=== PATIENT | female | born 1975 | race Caucasian/White ===

== ENCOUNTER → 2017-12-16 | Outpatient (CLI) | payer OTHER ==
--- NOTE | 2017-12-16 16:13 | XR ---
EXAMINATION TYPE: XR lumbosacral spine min 4V DATE OF EXAM: 12/16/2017 COMPARISON: None HISTORY: Sciatica TECHNIQUE: Five-view lumbar spine FINDINGS: There is loss of disc height L5-S1. There 5 lumbar-type vertebral bodies. Pedicles are intact. Disc heights are otherwise preserved. Vert ebral body heights are preserved. IMPRESSION: 1. Degenerative disc changes L5-S1.
== END | disposition home or self-care (01) ==
LOC: RADXRYALE 11:07
PROVIDERS: ATTEND Internal Medicine
DX: M47.817 Spondylosis without myelopathy or radiculopathy, lumbosacral region (principal)
CPT/HCPCS: 72110

== ENCOUNTER → 2020-08-23 | Outpatient (CLI) | payer BC, OTHER ==
--- NOTE | 2020-08-23 12:34 | MR ---
EXAMINATION TYPE: MR lumbar spine wo con DATE OF EXAM: 08/23/2020 COMPARISON: None HISTORY: Lumbar pain, Rt sciatic pain TECHNIQUE: Multiplanar, multisequence images of the lumbar spine were acquired. Findings: The lumbar vertebral segments are normal in both height and alignment and there is no fracture or sub luxation. There is moderate degenerative disc disease at the L5-S1 level where there is loss of signal intensit y of the intervertebral disc along with discogenic endplate changes. There is a moderate to large broad-based disc contusion/herniation of the L5-S1 disc posteriorly grea ter than left of midline. Secondary to the disc protrusion/herniation, there is moderate to severe ne ural foraminal stenosis at the L5-S1 level on the left. There is mild facet arthropathy at the L4-5 and L5-S1 levels. There is no spinal stenosis. The paraspinal soft tissues are unremarkable. IMPRESSION: 1. Moderate degenerative disc disease at the L5-S1 level. 2. Large large L5-S1 broad-based disc protrusion/herniation posteriorly and to the left of midline co mpromising the left lateral recess and left L5-S1 neural foramina as described above. 3. Mild facet arthropathy the lower lumbar spine. 4. No lumbar spine fracture or malalignment. 5. No spinal stenosis.
== END | disposition home or self-care (01) ==
LOC: RADMRIMAIN 11:05
PROVIDERS: ATTEND Nurse Practitioner Family
DX: M51.27 Other intervertebral disc displacement, lumbosacral region (principal); M51.37 Other intervertebral disc degeneration, lumbosacral region; M47.816 Spondylosis without myelopathy or radiculopathy, lumbar region
CPT/HCPCS: 72148

== ENCOUNTER 2021-01-17 13:33 | Emergency (ER) | payer BC, OTHER ==
[2021-01-17 13:47] VITALS: TEMP 98.3
[2021-01-17 14:13] LABS: Appearance,Urine Cloudy (Clear); Bacteria,Urine Many /hpf; Bilirubin,Urine Negative (Negative); Blood,Urine Large (Negative); Color,Urine Yellow; Glucose,Urine (UA) Negative (Negative); Hyaline Casts,Urine 12 /lpf (0-2); Ketones,Urine 1+ (Negative); Leukocyte Esterase,Urine Moderate (Negative); Mucus,Urine Moderate /hpf; Nitrite,Urine Negative (Negative); Protein,Urine Trace (Negative); RBC,Urine >182 /hpf (0-5); Specific Gravity,Urine 1.013 (1.001-1.035); Squamous Epithelial Cell,Urine 42 /hpf (0-4); Urobilinogen,Urine <2.0 mg/dL (<2.0); WBC,Urine 30 /hpf (0-5)
[2021-01-17] MEDS ORDERED: KETOROLAC 15 MG/ML 1 ML VIAL IVP STA (15:18)
[2021-01-17] MEDS ORDERED: SODIUM CHLORIDE 0.9% 1,000 ML IV ONE (15:18)
[2021-01-17] MEDS ORDERED: ONDANSETRON 4 MG/2 ML VIAL IVP STA (15:18)
--- NOTE | 2021-01-17 15:25 | ED ---
General Adult HPI - General Chief complaint: Abdominal Pain Stated complaint: Kidney Stone Time Seen by Provider: 01/17/21 15:09 Source: patient, RN notes reviewed, old records reviewed Mode of arrival: ambulatory Limitations: no limitations - History of Present Illness Initial comments: 45-year-old female presenting for evaluation of right flank pain, mild lower abdominal pain. Patient was recently discharged with left obstructive any stone at outside hospital. She states that the pain on her right side started approximately 24 hours ago. She had one episode of vomiting and has persistent nausea as well. She does report hematuria. No fever. No chills. She is otherwise healthy. - Related Data Previous Rx's Medication Instructions Recorded Cephalexin [Keflex] 500 mg PO TID #30 cap 01/17/21 Ibuprofen [Motrin] 600 mg PO Q8HR PRN #24 tab 01/17/21 Tamsulosin [Flomax] 0.4 mg PO DAILY #7 cap 01/17/21 Allergies Allergy/AdvReac Type Severity Reaction Status Date / Time No Known Allergies Allergy Verified 01/17/21 13:44 Review of Systems ROS Statement: Those systems with pertinent positive or pertinent negative responses have been documented in the HPI. ROS Other: All systems not noted in ROS Statement are negative. Past Medical History Past Medical History: No Reported History History of Any Multi-Drug Resistant Organisms: None Reported Past Surgical History: No Surgical Hx Reported Past Psychological History: Depression Smoking Status: Current every day smoker Past Alcohol Use History: None Reported Past Drug Use History: Marijuana General Exam Limitations: no limitations General appearance: alert, in no apparent distress Head exam: Present: atraumatic, normocephalic Eye exam: Present: normal appearance, PERRL ENT exam: Present: mucous membranes dry Neck exam: Present: normal inspection. Absent: tenderness, meningismus Respiratory exam: Present: normal lung sounds bilaterally. Absent: respiratory distress, wheezes Cardiovascular Exam: Present: regular rate, normal rhythm GI/Abdominal exam: Present: soft. Absent: distended, tenderness, guarding Extremities exam: Present: normal inspection, normal capillary refill Back exam: Present: normal inspection, CVA tenderness (R) Neurological exam: Present: alert, oriented X3, CN II-XII intact. Absent: motor sensory deficit Psychiatric exam: Present: normal affect, normal mood Skin exam: Present: warm, dry, intact. Absent: cyanosis, diaphoretic Course Vital Signs 01/17/21 13:44 Temperature 98.3 F Pulse Rate 89 Respiratory 20 Rate Blood Pressure 108/73 O2 Sat by Pulse 98 Oximetry - Reevaluation(s) Reevaluation #1: 01/17/21 16:33 CT report from [facility] showing a right-sided nephrolithiasis and multiple bladder calculi no hydronephrosis or obstructing stone at that time. Reevaluation #2: 01/17/21 17:47 Patient reevaluated, resting comfortably, no pain. No vomiting. No fever. Medical Decision Making - Medical Decision Making 45-year-old female with right flank pain. CT performed, shows a 6 monitor stone at the UPJ with hydronephrosis. Patient has a mild leukocytosis at 12.1. She has mild hypercalcemia 11.6. She has a urinalysis showing greater than 182 red cells, 30 white cells and many bacteria. Urine culture is pending. She's given Toradol, IV fluids, IV antibiotics in the emergency department. I did discuss case with Dr. Stan suresh for urology. We both feel the patient is stable for discharge with empiric antibiotics and strict return parameters. Patient is feeling better and is agreeable with this plan. She is instructed to return with fever, worsening pain, vomiting. She will be prescribed antibiotics, pain medicine and Flomax. She is given a urine strainer in the emergency department. - Lab Data Result diagrams: 01/17/21 15:40 01/17/21 15:40 Lab Results 01/17/21 01/17/21 01/17/21 Range/Units 13:53 15:40 15:40 WBC 12.1 H (3.8-10.6) k/uL RBC 4.49 (3.80-5.40) m/uL Hgb 13.5 (11.4-16.0) gm/dL Hct 41.4 (34.0-46.0) % MCV 92.3 (80.0-100.0) fL MCH 30.1 (25.0-35.0) pg MCHC 32.6 (31.0-37.0) g/dL RDW 14.2 (11.5-15.5) % Plt Count 336 (150-450) k/uL MPV 8.1 Neutrophils % 72 % Lymphocytes % 20 % Monocytes % 5 % Eosinophils % 1 % Basophils % 0 % Neutrophils # 8.7 H (1.3-7.7) k/uL Lymphocytes # 2.5 (1.0-4.8) k/uL Monocytes # 0.5 (0-1.0) k/uL Eosinophils # 0.1 (0-0.7) k/uL Basophils # 0.1 (0-0.2) k/uL PT 10.5 (9.0-12.0) sec INR 1.0 (<1.2) APTT 22.2 (22.0-30.0) sec Sodium (137-145) mmol/L Potassium (3.5-5.1) mmol/L Chloride (98-107) mmol/L Carbon Dioxide (22-30) mmol/L Anion Gap mmol/L BUN (7-17) mg/dL Creatinine (0.52-1.04) mg/dL Est GFR (CKD-EPI)AfAm (>60 ml/min/1.73 sqM) Est GFR (CKD-EPI)NonAf (>60 ml/min/1.73 sqM) Glucose (74-99) mg/dL Plasma Lactic Acid Dejon (0.7-2.0) mmol/L Calcium (8.4-10.2) mg/dL Magnesium (1.6-2.3) mg/dL Total Bilirubin (0.2-1.3) mg/dL AST (14-36) U/L ALT (4-34) U/L Alkaline Phosphatase (38-126) U/L Total Protein (6.3-8.2) g/dL Albumin (3.5-5.0) g/dL Urine Color Yellow Urine Appearance Cloudy H (Clear) Urine pH 6.0 (5.0-8.0) Ur Specific [place] 1.013 (1.001-1.035) Urine Protein Trace H (Negative) Urine Glucose (UA) Negative (Negative) Urine Ketones 1+ H (Negative) Urine Blood Large H (Negative) Urine Nitrite Negative (Negative) Urine Bilirubin Negative (Negative) Urine Urobilinogen <2.0 (<2.0) mg/dL Ur Leukocyte Esterase Moderate H (Negative) Urine RBC >182 H (0-5) /hpf Urine WBC 30 H (0-5) /hpf Ur Squamous Epith Cells 42 H (0-4) /hpf Urine Bacteria Many H (None) /hpf Hyaline Casts 12 H (0-2) /lpf Urine Mucus Moderate H (None) /hpf 01/17/21 01/17/21 Range/Units 15:40 15:40 WBC (3.8-10.6) k/uL RBC (3.80-5.40) m/uL Hgb (11.4-16.0) gm/dL Hct (34.0-46.0) % MCV (80.0-100.0) fL MCH (25.0-35.0) pg MCHC (31.0-37.0) g/dL RDW (11.5-15.5) % Plt Count (150-450) k/uL MPV Neutrophils % % Lymphocytes % % Monocytes % % Eosinophils % % Basophils % % Neutrophils # (1.3-7.7) k/uL Lymphocytes # (1.0-4.8) k/uL Monocytes # (0-1.0) k/uL Eosinophils # (0-0.7) k/uL Basophils # (0-0.2) k/uL PT (9.0-12.0) sec INR (<1.2) APTT (22.0-30.0) sec Sodium 140 (137-145) mmol/L Potassium 3.6 (3.5-5.1) mmol/L Chloride 109 H (98-107) mmol/L Carbon Dioxide 20 L (22-30) mmol/L Anion Gap 11 mmol/L BUN 11 (7-17) mg/dL Creatinine 0.70 (0.52-1.04) mg/dL Est GFR (CKD-EPI)AfAm >90 (>60 ml/min/1.73 sqM) Est GFR (CKD-EPI)NonAf >90 (>60 ml/min/1.73 sqM) Glucose 99 (74-99) mg/dL Plasma Lactic Acid Dejon 1.5 (0.7-2.0) mmol/L Calcium 11.6 H (8.4-10.2) mg/dL Magnesium 2.0 (1.6-2.3) mg/dL Total Bilirubin 0.5 (0.2-1.3) mg/dL AST 18 (14-36) U/L ALT 13 (4-34) U/L Alkaline Phosphatase 69 (38-126) U/L Total Protein 7.8 (6.3-8.2) g/dL Albumin 4.7 (3.5-5.0) g/dL Urine Color Urine Appearance (Clear) Urine pH (5.0-8.0) Ur Specific [place] (1.001-1.035) Urine Protein (Negative) Urine Glucose (UA) (Negative) Urine Ketones (Negative) Urine Blood (Negative) Urine Nitrite (Negative) Urine Bilirubin (Negative) Urine Urobilinogen (<2.0) mg/dL Ur Leukocyte Esterase (Negative) Urine RBC (0-5) /hpf Urine WBC (0-5) /hpf Ur Squamous Epith Cells (0-4) /hpf Urine Bacteria (None) /hpf Hyaline Casts (0-2) /lpf Urine Mucus (None) /hpf Disposition Clinical Impression: Calculus of kidney Disposition: HOME SELF-CARE Condition: Good Instructions (If sedation given, give patient instructions): Kidney Stones (ED), Renal Colic (ED) Additional Instructions: Please return with worsening symptoms, fever, vomiting. Please take antibiotics as prescribed. Please follow up with the urologist. Prescriptions: Tamsulosin [Flomax] 0.4 mg PO DAILY #7 cap Cephalexin [Keflex] 500 mg PO TID #30 cap Ibuprofen [Motrin] 600 mg PO Q8HR PRN #24 tab PRN Reason: Pain Is patient prescribed a controlled substance at d/c from ED?: No Referrals: Ashley Junior NPC [Primary Care Provider] - 1-2 days Freddy Pierce MD [STAFF PHYSICIAN] - 1-2 days Time of Disposition: 17:50
[2021-01-17 15:57] LABS: Basophils # (A) 0.1 k/uL (0-0.2); Basophils % (A) 0 %; Eosinophils # (A) 0.1 k/uL (0-0.7); Eosinophils % (A) 1 %; HCT 41.4 % (34.0-46.0); HGB 13.5 gm/dL (11.4-16.0); Lymphocytes # (A) 2.5 k/uL (1.0-4.8); Lymphocytes % (A) 20 %; MCH 30.1 pg (25.0-35.0); MCHC 32.6 g/dL (31.0-37.0); MCV 92.3 fL (80.0-100.0); Mean Platelet Volume 8.1; Monocytes # (A) 0.5 k/uL (0-1.0); Monocytes % (A) 5 %; Neutrophils # (A) 8.7 k/uL (1.3-7.7); Neutrophils % (A) 72 %; Platelet Count 336 k/uL (150-450); RBC 4.49 m/uL (3.80-5.40); RDW 14.2 % (11.5-15.5); WBC 12.1 k/uL (3.8-10.6)
[2021-01-17 16:14] LABS: Partial Thromboplastin Time 22.2 sec (22.0-30.0); Prothrombin Time 10.5 sec (9.0-12.0)
[2021-01-17 16:24] LABS: ALT 13 U/L (4-34); AST 18 U/L (14-36); African American GFR (CKD) >90 (>60 ml/min/1.73 sqM); Albumin 4.7 g/dL (3.5-5.0); Alkaline Phosphatase 69 U/L (38-126); Anion Gap 11 mmol/L; Blood Urea Nitrogen 11 mg/dL (7-17); Calcium 11.6 mg/dL (8.4-10.2); Carbon Dioxide 20 mmol/L (22-30); Chloride 109 mmol/L (98-107); Glucose 99 mg/dL (74-99); Non-African American GFR(CKD) >90 (>60 ml/min/1.73 sqM); Potassium 3.6 mmol/L (3.5-5.1); Sodium 140 mmol/L (137-145); Total Bilirubin 0.5 mg/dL (0.2-1.3); Total Protein 7.8 g/dL (6.3-8.2)
[2021-01-17] MEDS ORDERED: cefTRIAXone IN SWFI 1,000 MG/10 ML SYRINGE IVP STA (16:26)
--- NOTE | 2021-01-17 17:15 | CT ---
EXAMINATION TYPE: CT abdomen pelvis wo con DATE OF EXAM: 01/17/2021 COMPARISON: None HISTORY: right flank pain CT DLP: 463.7 mGycm Automated exposure control for dose reduction was used. Images obtained from the diaphragm to the floor the pelvis without contrast. Lung bases are clear. There is no pleural effusion. Heart size is normal. There is no pericardial eff usion. Liver spleen stomach pancreas gallbladder appear intact. Bile ducts are not dilated. There are small calcified splenic granulomata. There is no adrenal mass. Kidneys have normal size. There is right side mild hydronephrosis. There is 6 mm obstructing calculus at the right ureteropelvic junction. There are a few right-sided renal garett culi measuring up to 3 mm. There is no retroperitoneal adenopathy. I see no evidence of distal ureter al calculus. There is no inguinal hernia. Bladder distends smoothly. Uterus is anteverted. There is n o pelvic mass. There is no free fluid in the pelvis. Appendix is posterior and appears normal. There is no mesenteric edema. There is no ascites or free a ir. There is no bowel obstruction. Lumbar vertebra have normal alignment. Posterior elements are intact. There is vacuum disc at L5-S1. Hip joints are intact. IMPRESSION: Obstructing calculus at the right ureteropelvic junction. There are several small right renal calculi. Right side hydronephrosis. Normal appendix.
[2021-01-17 18:48] VITALS: BP 135/74; PULSE 87; RESP 18
== END 2021-01-17 18:48 | disposition home or self-care (01) ==
LOC: EC 13:33
DX: N13.2 Hydronephrosis with renal and ureteral calculous obstruction (principal); D72.829 Elevated white blood cell count, unspecified; E83.52 Hypercalcemia; F17.200 Nicotine dependence, unspecified, uncomplicated
CPT/HCPCS: 36415; 80053; 83605; 83735; 85025; 85610; 85730; 81001; 87086; 74176; 99284; 96374; 96375; 96361; J2405; J0696; J1885

== ENCOUNTER → 2021-01-23 | Outpatient (CLI) | payer BC ==
--- NOTE | 2021-01-23 09:52 | XR ---
EXAMINATION TYPE: XR KUB DATE OF EXAM: 01/23/2021 COMPARISON: CT abdomen and pelvis 01/17/2021 HISTORY: Right ureteral pelvic junction stone TECHNIQUE: Single AP abdomen FINDINGS: Psoas margins are normal. Organomegaly is not evident. Osseous structures are normal. Wanda l colonic bowel gas is present. The patient's right ureteral pelvic junction stone is not identified. No ureteral calcifications are identified. IMPRESSION: 1. Normal abdomen
== END | disposition home or self-care (01) ==
LOC: LABWHC1 09:22
PROVIDERS: ATTEND Urology
DX: N20.1 Calculus of ureter (principal)
CPT/HCPCS: 74018

== ENCOUNTER → 2021-02-04 | Outpatient (CLI) | payer BC ==
[2021-02-04 10:12] LABS: Basophils % (A) 1 %; Eosinophils # (A) 0.2 k/uL (0-0.7); Eosinophils % (A) 3 %; HCT 39.3 % (34.0-46.0); HGB 12.5 gm/dL (11.4-16.0); Lymphocytes # (A) 1.9 k/uL (1.0-4.8); Lymphocytes % (A) 31 %; MCH 29.4 pg (25.0-35.0); Mean Platelet Volume 8.2; Monocytes # (A) 0.3 k/uL (0-1.0); Monocytes % (A) 6 %; Neutrophils # (A) 3.5 k/uL (1.3-7.7); Neutrophils % (A) 57 %; Platelet Count 314 k/uL (150-450); RBC 4.27 m/uL (3.80-5.40); RDW 13.9 % (11.5-15.5); WBC 6.1 k/uL (3.8-10.6)
[2021-02-04 10:13] LABS: Appearance,Urine Cloudy (Clear); Bacteria,Urine Occasional /hpf; Bilirubin,Urine Negative (Negative); Blood,Urine Moderate (Negative); Color,Urine Light Yellow; Glucose,Urine (UA) Negative (Negative); Ketones,Urine Negative (Negative); Leukocyte Esterase,Urine Moderate (Negative); Mucus,Urine Rare /hpf; Nitrite,Urine Negative (Negative); PH, Urine 5.5 (5.0-8.0); Protein,Urine Negative (Negative); RBC,Urine 18 /hpf (0-5); Specific Gravity,Urine 1.017 (1.001-1.035); Squamous Epithelial Cell,Urine 5 /hpf (0-4); Urobilinogen,Urine <2.0 mg/dL (<2.0); WBC,Urine 11 /hpf (0-5)
[2021-02-04 10:17] LABS: African American GFR (CKD) >90 (>60 ml/min/1.73 sqM); Anion Gap 6 mmol/L; Blood Urea Nitrogen 15 mg/dL (7-17); Calcium 11.4 mg/dL (8.4-10.2); Carbon Dioxide 25 mmol/L (22-30); Chloride 108 mmol/L (98-107); Glucose 106 mg/dL (74-99); Non-African American GFR(CKD) >90 (>60 ml/min/1.73 sqM); Potassium 4.4 mmol/L (3.5-5.1); Sodium 139 mmol/L (137-145)
== END | disposition home or self-care (01) ==
LOC: LABPAT 09:16
PROVIDERS: ATTEND Urology
DX: N20.1 Calculus of ureter (principal)
CPT/HCPCS: 80048; 81001; 85025; 87086

== ENCOUNTER 2021-02-11 08:01 | Day surgery (SDC) | payer BC ==
[2021-02-06 12:21] VITALS: BMI 28.9
--- NOTE | 2021-02-10 17:08 | P.HPIHPCON ---
History of Present Illness H&P Date: 02/10/21 This is a 45-year-old female with history of a 6 mm right-sided UPJ stone. She symptomatically from her stone. She has failed medical expulsive therapy, the stone is radiolucent. Discussed with her the option of a right-sided ureteroscopy with holmium laser. Discussed with her her the risk which includes but not limited to bleeding, infection, injury to the ureter. She understood all the risk and agreed to proceed. Consent for Procedure: I have explained the operation/procedure to the patient, including the risks, benefits, side effects, alternative therapies (including not receiving the proposed treatment or service), the likelihood of the patient achieving his/her goals, and potential recuperation problems for the procedure/sedation/analgesia, as well as any blood products, if indicated. I also explained to the patient the risks, benefits and side effects of the alternatives, as well as the risks related to not receiving the proposed procedure, care, treatment, or services. - Constitutional Constitutional: Denies chills, Denies fever Past Medical History Past Medical History: No Reported History Additional Past Medical History / Comment(s): KIDNEY STONE History of Any Multi-Drug Resistant Organisms: None Reported Past Surgical History: No Surgical Hx Reported Additional Past Surgical History / Comment(s): BOILED I & D PERIANAL AREA Past Anesthesia/Blood Transfusion Reactions: No Reported Reaction Smoking Status: Current every day smoker - Past Family History Mother Family Medical History: No Reported History Medications and Allergies Home Medications Medication Instructions Recorded Confirmed Type Acetaminophen [Tylenol Extra 1,000 mg PO Q6HR PRN 02/06/21 02/06/21 History Strength] Escitalopram [Lexapro] 10 mg PO HS 02/06/21 02/06/21 History Gabapentin 300 mg PO TID 02/06/21 02/06/21 History Allergies Allergy/AdvReac Type Severity Reaction Status Date / Time No Known Allergies Allergy Verified 02/06/21 12:04 Surgical - Exam - General well developed, well nourished, moderate pain - Eyes PERRL, normal ocular movement - ENT normal nares, normal mucosa - Respiratory normal expansion, normal respiratory effort - Psychiatric oriented to time, oriented to person, oriented to place Assessment and Plan Assessment: OR for right-sided ureteroscopy, with holmium laser lithotripsy, stone basketing and stent insertion
[~2021-02-11 08:01] MED LIST: DEXAMETHASONE SOD PHOSPHATE 4 MG/ML 1 ML VIAL IV ONE; HYDROmorphone 0.5 MG/0.5 ML SYRINGE IVP PRN; LACTATED RINGERS 1,000 ML IV SCH; LIDOCAINE 1% (10MG/ML) FOR IV START INTRADERMA PRN; MIDAZOLAM 2 MG/2 ML VIAL IV PRN; ONDANSETRON 4 MG/2 ML VIAL IVP ONE
--- NOTE | 2021-02-11 08:22 | XR ---
EXAMINATION TYPE: XR KUB DATE OF EXAM: 02/11/2021 Comparison: 01/23/2021 Clinical History: 45-year-old female KIDNEY STONES Findings: Mild stool burden. No dilated small bowel loops. Supine imaging limited for assessment of free air. R ight renal shadow largely obscured by bowel content. Otherwise, no suspicious calcifications clearly identified radiographically. Impression: The right renal shadow is largely obscured by bowel content. Nonobstructive bowel gas pattern. Mild s tool burden.
[2021-02-11] MEDS ORDERED: ONDANSETRON 4 MG/2 ML VIAL IVP ONE (09:12)
[2021-02-11] MEDS ORDERED: DEXAMETHASONE SOD PHOSPHATE 4 MG/ML 1 ML VIAL IVP ONE (09:12)
[2021-02-11] MEDS ORDERED: SCOPOLAMINE 1.5MG/72HR PATCH TRANSDERM ONE (09:12)
[2021-02-11] MEDS ORDERED: fentaNYL (PF) 50 MCG/ML 2 ML AMP ONE (10:18)
[2021-02-11] MEDS ORDERED: PROPOFOL 10 MG/ML 20 ML VIAL IV ONE (10:18)
[2021-02-11] MEDS ORDERED: LIDOCAINE 1% INJ 10MG/ML (20 ML MDV) ONE (10:18)
[2021-02-11] MEDS ORDERED: MIDAZOLAM 2 MG/2 ML VIAL ONE (10:18)
[2021-02-11] MEDS ORDERED: SUCCINYLCHOLINE CHLORIDE 100 MG/5 ML SYR IV ONE (10:18)
[2021-02-11] MEDS ORDERED: IOPAMIDOL-370 50ML BTL MISCELLANE ONE (10:41)
[2021-02-11] MEDS ORDERED: LACTATED RINGERS 1,000 ML IV ONE (10:42)
[2021-02-11 11:21] VITALS: TEMP 97.1
[2021-02-11 11:35] VITALS: RESP 16
--- NOTE | 2021-02-11 11:46 | FL ---
Fluoroscopy HISTORY: Right ureteral calculus 23 seconds fluoroscopy time supplied to the referring clinician. 3 intraoperative C-arm images docum ent the procedure. See dictated report from urology.
[2021-02-11 12:29] VITALS: BP 111/68; PULSE 55
--- NOTE | 2021-02-11 13:47 | P.OP ---
Date of Procedure: 02/11/21 Preoperative Diagnosis: right ureteral calculi Postoperative Diagnosis: same Procedure(s) Performed: cystoscopy, right ureteroscopy, holmium laser lithotripsy, stone basketing and stent insertion, and a retrograde pyelogram Implants: 6-English by 24 cm stent in right ureter Anesthesia: ONUR Surgeon: Bandar Lew Estimated Blood Loss (ml): 5 Pathology: other (right ureteral stone) Condition: stable Disposition: PACU Indications for Procedure: This is a 45-year-old female with history of a 6 mm right-sided UPJ stone. She symptomatically from her stone. She has failed medical expulsive therapy, the stone is radiolucent. Discussed with her the option of a right-sided ureteroscopy with holmium laser. Discussed with her her the risk which includes but not limited to bleeding, infection, injury to the ureter. She understood all the risk and agreed to proceed. Operative Findings: right proximal ureteral stone Description of Procedure: she was brought to the operating room, general anesthesia was induced. She was prepped and draped in sterile fashion and placed in dorsal lithotomy position. Cystoscopy fitted with a 21-English sheath was inserted per urethra, cystoscopy was performed which showed no abnormality within the bladder. Attention was then carried to the right ureteral orifice which was intubated with an open- ended catheter, retrograde pyelogram was performed which showed a filling defect in the proximal ureter with hydronephrosis. At this time the catheter was removed and a sensor wire was advanced past the stone into the renal pelvis. Next under fluoroscopy 1113 English access sheath was passed over the wire and into the proximal ureter. Next the flexible ureteroscope was inserted through the access sheath, the stone was visualized in the proximal ureter. Using the holmium laser the stone was fragmented into small fragments, sizable fragments were removed using the stone basket. At this time the ureteroscope was advanced into the kidney, renoscopy was performed showed an additional small stone within the mid calyx, but no additional stones, this was basketted and removed . Repeat renoscopy showed no injury to the kidney or any ureteral fragments. Pullback ureteroscopy was performed which showed no injury to the ureter or any sizable fragments. But of note there was edema at the site of stone impaction. As the ureteroscope was withdrawn a sensor wire was advanced through. Next a ureteral stent was passed over the wire, the proximal curl was visualized on fluoroscopy and the distal curl was visualized using the cystoscope. The bladder was emptied at the end of the case. Patient tolerated procedure well was taken to recovery in stable condition
== END 2021-02-11 13:03 | disposition home or self-care (01) ==
LOC: OR 08:01
PROVIDERS: ATTEND Urology
DX: N20.1 Calculus of ureter (principal); F17.210 Nicotine dependence, cigarettes, uncomplicated; Z79.899 Other long term (current) drug therapy
CPT/HCPCS: 81025; 82365; 74018; 52356; C2625; C1758; C1769; J2250; J1100; J0690; J2405; J2001; J3010; J0330; J2704; J1170; Q9967

== ENCOUNTER → 2021-03-12 | Outpatient (CLI) | payer BC ==
--- NOTE | 2021-03-12 19:09 | US ---
EXAMINATION TYPE: US kidneys/renal and bladder DATE OF EXAM: 03/12/2021 COMPARISON: NONE CLINICAL HISTORY: 45-year-old female N20.1 Calculus of ureter right. Hx of kidney stones TECHNIQUE: Multiple sonographic images of the kidneys and bladder are obtained. FINDINGS: EXAM MEASUREMENTS: Right Kidney: 11.0 x 4.6 x 4.8 cm Left Kidney: 10.6 x 5.7 x 3.8 cm Right Kidney: No hydronephrosis. There is an echogenic focus measuring 7 mm at the lower pole. Left Kidney: No evidence of hydronephrosis Bladder: wnl Bilateral Jets seen: yes IMPRESSION: 1. No hydronephrosis. 2. A 7 mm echogenic area in the lower pole of the right kidney could represent a developing calculus or prominent vascular reflector.
== END | disposition home or self-care (01) ==
LOC: RADUSWWP 14:51
PROVIDERS: ATTEND Urology
DX: N20.1 Calculus of ureter (principal)
CPT/HCPCS: 76770

== ENCOUNTER → 2022-07-14 | Outpatient (CLI) | payer BC ==
--- NOTE | 2022-07-14 10:13 | XR ---
EXAMINATION TYPE: XR abdomen 2V DATE OF EXAM: 07/14/2022 9:28 AM INDICATION: Patient age:Female; 46 years old; Reason for study: [id number] LOWER ABD PAIN; COMPARISON: CT 01/17/2021, ultrasound 03/12/2021 TECHNIQUE: Two views of the abdomen were obtained. FINDINGS: There are at least 3 calcifications one of which projects over the inferior kidney measurin g 6 mm and two more medially measuring 13 x 8 and 7 x 5 mm felt to be within the renal pelvis/proxima l ureter. The bowel gas pattern is nonspecific without dilated loops of small or large bowel. There i s no evidence for organomegaly or pneumoperitoneum. The osseous structures are intact. Fecal materia l and gas are demonstrated throughout the colon and rectum. IMPRESSION: Right calcifications which could be within the urinary collecting system. Some of these were seen on prior including the small calcification projected inferior kidney and the smaller renal pelvis consul tation.
== END | disposition home or self-care (01) ==
LOC: RADXRYALE 09:16
PROVIDERS: ATTEND Physician Assistant Medical
DX: N28.89 Other specified disorders of kidney and ureter (principal)
CPT/HCPCS: 74019

== ENCOUNTER → 2022-07-20 | Outpatient (CLI) | payer BC ==
--- NOTE | 2022-07-20 10:49 | CT ---
EXAMINATION TYPE: CT abdomen pelvis wo con DATE OF EXAM: 07/20/2022 COMPARISON: 01/17/2021 HISTORY: 46-year-old female R10.30, Abdominal pain, renal stones, bilateral flank pain CT DLP: 515.4 mGycm. Automated exposure control for dose reduction was used. TECHNIQUE: Contiguous axial scanning of the abdomen and pelvis without IV contrast. Coronal and sagit miky reconstructions performed. FINDINGS: Heart normal size without pericardial effusion. Mild emphysematous change in the visualized lower samreen gs without pleural effusion. Noncontrast appearance of the liver, gallbladder, adrenal glands, spleen, and pancreas show no gross abnormality. A few punctate calcified granulomas within the spleen. 6 mm nonobstructive left renal calculus. 6 mm nonobstructive right renal calculus. However, there is moderate right-sided hydronephrosis secondary to a 9 mm stone in the upper most rig ht ureter. A second 6 cm stone is present just below. No dilated small bowel, free fluid, or free air. No mesenteric or retroperitoneal lymphadenopathy. Normal appendix. There is mild stool burden. No pericolic inflammatory change. The appearance of mild circumferential rectal wall thickening probably due to adherent stool material Bladder is urine distended. Uterus anteverted. Both ovaries are visualized. No abnormal fluid collect ion in the pelvis or pelvic lymphadenopathy. Bones: Moderate to advanced degenerative disc disease L5-S1. Facet arthropathy lower lumbar spine. IMPRESSION: 1. Right-sided obstructive uropathy secondary to a 9 mm and 6 mm stone in the upper right ureter. Mo derate hydronephrosis is present. 2. Additional nonobstructive 6 mm stone within either kidney. 3. Appearance of mild circumferential rectal wall thickening probably due to adherent stool material . Correlate for any symptoms of a mild distal colitis.
== END | disposition home or self-care (01) ==
LOC: RADCTMAIN 09:47
PROVIDERS: ATTEND Family Medicine
DX: N13.2 Hydronephrosis with renal and ureteral calculous obstruction (principal); K62.89 Other specified diseases of anus and rectum
CPT/HCPCS: 74176

== ENCOUNTER → 2023-07-21 | Outpatient (CLI) | payer BC ==
--- NOTE | 2023-07-21 10:00 | XR ---
EXAMINATION TYPE: XR chest 2V DATE OF EXAM: 07/21/2023 9:40 AM CLINICAL INDICATION:Female, 47 years old with history of [id number],[id number],[id number]; [facility] COMPARISON: None TECHNIQUE: XR chest 2V Frontal and lateral views of the chest. FINDINGS: Lungs/Pleura: Nodule projecting anteriorly over the heart on lateral view measuring 9 mm. There is no evidence of pleural effusion, focal consolidation, or pneumothorax. Pulmonary vascularity: Unremarkable. Heart/mediastinum: Cardiomediastinal silhouette is unremarkable. Musculoskeletal: No acute osseous pathology. IMPRESSION: 1. No acute cardiopulmonary disease/process. 2. 9 mm opacity projecting over the heart on lateral view etiology uncertain not definitively seen o n frontal view. Consider cross-sectional imaging for further evaluation.
== END | disposition home or self-care (01) ==
LOC: RADXRYALE 09:30
PROVIDERS: ATTEND Physician Assistant
DX: R91.8 Other nonspecific abnormal finding of lung field (principal); J01.00 Acute maxillary sinusitis, unspecified; J02.9 Acute pharyngitis, unspecified; J18.0 Bronchopneumonia, unspecified organism; J45.901 Unspecified asthma with (acute) exacerbation; R05.1 Acute cough
CPT/HCPCS: 71046

== ENCOUNTER → 2023-08-04 | Outpatient (CLI) | payer BC ==
--- NOTE | 2023-08-04 11:34 | XR ---
EXAMINATION TYPE: XR chest 2V DATE OF EXAM: 08/04/2023 COMPARISON: 08/08/2023 HISTORY: 47-year-old female follow-up cough [id number],[id number] TECHNIQUE: Frontal and lateral views FINDINGS: Vertebral size. Aorta and pulmonary vasculature within normal limits. Calcified granuloma anterior mi d lung on the lateral view. No consolidation or pleural effusion. IMPRESSION: Evidence of prior granulomatous disease. No acute cardiopulmonary process.
== END | disposition home or self-care (01) ==
LOC: RADXRYALE 08:34
PROVIDERS: ATTEND Physician Assistant
DX: J18.0 Bronchopneumonia, unspecified organism (principal); J45.901 Unspecified asthma with (acute) exacerbation; J01.00 Acute maxillary sinusitis, unspecified; J02.9 Acute pharyngitis, unspecified
CPT/HCPCS: 71046

== ENCOUNTER → 2023-09-20 | Outpatient (CLI) | payer BC ==
--- NOTE | 2023-09-20 17:39 | XR ---
EXAMINATION TYPE: XR abdomen 1V DATE OF EXAM: 09/20/2023 Comparison: 07/14/2022 Clinical History: 47-year-old female N200,[id number] CALC OF KIDNEY, LLQ PAIN Findings: A couple left-sided renal calculi measuring up to 1.1 cm. A 1.1 cm calcification in the left paramedi an mid abdomen as well. A 9 mm calcification right paramedian mid abdomen. A 6 mm calcification right mid to lower abdomen. Nonobstructive bowel gas pattern. Minimal stool. Impression: 1. Left-sided nephrolithiasis measuring up to 1.1 cm. An additional 1.1 cm calcification may be locat ed within the left renal collecting system. 2. Right-sided calcifications measuring 9 mm and 6 mm possibly within the renal pelvis and upper righ t ureter. Clinically correlate. The 6 mm calcification is located slightly more inferior than on prio r exam.
== END | disposition home or self-care (01) ==
LOC: RADXRYALE 16:19
PROVIDERS: ATTEND Physician Assistant Medical
DX: N20.0 Calculus of kidney (principal); N28.89 Other specified disorders of kidney and ureter
CPT/HCPCS: 74018

== ENCOUNTER 2023-10-11 10:59 | Day surgery (SDC) | payer BC ==
[2023-10-06 17:06] VITALS: BMI 4161.8
--- NOTE | 2023-10-11 09:28 | P.HPIHPCON ---
History of Present Illness H&P Date: 10/11/23 Chief Complaint: Right ureteral stone, left renal stone This is a 47-year-old female with history of 2 right-sided proximal ureteral stone measuring 9 and 6 mm, and a 6 mm left-sided renal stone. Stones in the right ureter have been present since July. She is having symptomatic bilateral flank pain. Discussed with her given that the stone has been present for greater than 2 months I do recommend proceeding with surgical intervention. Of note she also would like to address her left-sided renal stone. Discussed with her the option of bilateral ureteroscopy with holmium laser, aware of the risk which includes but not limited to bleeding, infection, injury to the ureter. Aware of potential that I may not be able to remove the stones on the right side given that they been present for greater than 2 months. Discussed also for her left-sided renal stone potential persistent left flank pain even with stone removal. She understood all the risk and agreed to proceed Consent for Procedure: I have explained the operation/procedure to the patient, including the risks, benefits, side effects, alternative therapies (including not receiving the proposed treatment or service), the likelihood of the patient achieving his/her goals, and potential recuperation problems for the procedure/sedation/analgesia, as well as any blood products, if indicated. I also explained to the patient the risks, benefits and side effects of the alternatives, as well as the risks related to not receiving the proposed procedure, care, treatment, or services. Past Medical History Past Medical History: Asthma Additional Past Medical History / Comment(s): SEASONAL ALLERGIES, KIDNEY STONES History of Any Multi-Drug Resistant Organisms: None Reported Past Surgical History: No Surgical Hx Reported Past Anesthesia/Blood Transfusion Reactions: No Reported Reaction Smoking Status: Current every day smoker - Past Family History Father Family Medical History: Cancer Medications and Allergies Home Medications Medication Instructions Recorded Confirmed Type Escitalopram [Lexapro] 10 mg PO HS 02/06/21 10/06/23 History Albuterol Nebulized [Ventolin 1.25 mg INHALATION Q6H 10/06/23 10/06/23 History Nebulized (Accuneb)] Tiotropium 18 Mcg/Puff [Spiriva] 1 puff INHALATION DAILY 10/06/23 10/06/23 History Allergies Allergy/AdvReac Type Severity Reaction Status Date / Time No Known Allergies Allergy Verified 10/06/23 16:34 Surgical - Exam - General no distress, moderate pain - Eyes normal ocular movement, no pale - ENT normal nares, normal mucosa - Respiratory normal expansion, normal respiratory effort - Abdomen Abdomen: soft, non tender - Psychiatric oriented to time, oriented to person, oriented to place Assessment and Plan Assessment: OR for bilateral ureteroscopy, holmium laser lithotripsy, stone basketing and stent insertion
[~2023-10-11 10:59] MED LIST changes: -DEXAMETHASONE SOD PHOSPHATE 4 MG/ML 1 ML VIAL IV ONE; -LACTATED RINGERS 1,000 ML IV SCH; -MIDAZOLAM 2 MG/2 ML VIAL IV PRN; -ONDANSETRON 4 MG/2 ML VIAL IVP ONE; +droPERidol 5 MG/2 ML VIAL IVP ONE
--- NOTE | 2023-10-11 11:18 | XR ---
EXAMINATION TYPE: XR KUB DATE OF EXAM: 10/11/2023 HISTORY: Pain Comparison: None.Single KUB is submitted for interpretation. Findings: Right renal calculi: None Visualized. Right ureteral calculi: 8 mm right renal pelvis/UPJ calculus noted. Left renal calculi: Multiple calculi lower pole left kidney measuring up to 5 mm. Left ureteral calculi: Left UPJ calculus measuring 1.2 cm x 0.6 cm Pelvic calcifications: None Visualized. Bowel gas pattern is unremarkable. No free air. No mass effects. IMPRESSION: 1. As above
[2023-10-11] MEDS: LACTATED RINGERS 1,000 ML IV SCH (12:09)
[2023-10-11] MEDS: ONDANSETRON 4 MG/2 ML VIAL IVP ONE (12:10)
[2023-10-11] MEDS: DEXAMETHASONE SOD PHOSPHATE 4 MG/ML 1 ML VIAL IV ONE (12:10)
[2023-10-11] MEDS: IV FLUID CONTINUATION 1,000 ML IV ONE (12:10)
[2023-10-11] MEDS ORDERED: SUCCINYLCHOLINE CHLORIDE 200 MG/10 ML VIAL IV ONE (12:39)
[2023-10-11] MEDS ORDERED: DEXAMETHASONE SOD PHOSPHATE 10 MG/ML 1 ML VIAL ONE (12:39)
[2023-10-11] MEDS ORDERED: MIDAZOLAM 2 MG/2 ML VIAL ONE (12:39)
[2023-10-11] MEDS ORDERED: ROCURONIUM 10 MG/ML (5 ML VIAL) IV ONE (12:39)
[2023-10-11] MEDS ORDERED: GLYCOPYRROLATE 0.2 MG/ML 2 ML VIAL ONE (12:39)
[2023-10-11] MEDS ORDERED: fentaNYL (PF) 50 MCG/ML 2 ML AMP ONE (12:39)
[2023-10-11] MEDS ORDERED: ALBUTEROL HFA INHALER INHALATION ONE (12:39)
[2023-10-11] MEDS ORDERED: ePHEDrine 50 MG/ML 1 ML VIAL ONE (12:39)
[2023-10-11] MEDS ORDERED: PROPOFOL 10 MG/ML 20 ML VIAL IV ONE (12:39)
[2023-10-11] MEDS ORDERED: LIDOCAINE 1% INJ 10MG/ML (20 ML MDV) ONE (12:39)
[2023-10-11] MEDS ORDERED: PHENYLEPHRINE 10 MG/ML VIAL ONE (12:39)
[2023-10-11] MEDS ORDERED: NEOSTIGMINE 1 MG/ML 10 ML VIAL ONE (12:39)
[2023-10-11] MEDS: IOPAMIDOL-370 100ML BTL MISCELLANE ONE ×2 (14:00)
[2023-10-11] MEDS: LACTATED RINGERS 1,000 ML IV ONE (14:22)
--- NOTE | 2023-10-11 14:31 | P.OP ---
Date of Procedure: 10/11/23 Preoperative Diagnosis: Bilateral ureteral stones Postoperative Diagnosis: Same Procedure(s) Performed: Cystoscopy, bilateral ureteroscopy, holmium laser lithotripsy, stone basketing and stent insertion Implants: 6 [place] by 22 cm stent in the right ureter, 6 [place] by 24 cm stent in the left ureter Anesthesia: GETA Indications for Procedure: This is a 47-year-old female with history of 2 right-sided proximal ureteral stone measuring 9 and 6 mm, and a 6 mm left-sided renal stone. Stones in the right ureter have been present since July. She is having symptomatic bilateral flank pain. Discussed with her given that the stone has been present for greater than 2 months I do recommend proceeding with surgical intervention. Of note she also would like to address her left-sided renal stone. Discussed with her the option of bilateral ureteroscopy with holmium laser, aware of the risk which includes but not limited to bleeding, infection, injury to the ureter. Aware of potential that I may not be able to remove the stones on the right side given that they been present for greater than 2 months. Discussed also for her left-sided renal stone potential persistent left flank pain even with stone removal. She understood all the risk and agreed to proceed Operative Findings: Large right-sided proximal ureteral stone that was impacted, an additional stone was also seen in the renal pelvis Large stone at the left proximal ureter Description of Procedure: Patient brought to the operating room, general anesthesia was induced. She was prepped and draped in sterile fashion and placed in dorsolithotomy position. Cystoscopy was performed showed no abnormality within the bladder. Attention was then carried to the right ureteral orifice which was intubated with a sensor wire, advanced a wire under fluoroscopy but at this point I was unable to advance the wire past the radiopaque stone given the impaction. At this point in the 1113 [place] access sheath was passed over the wire in keeping the access sheath distal to the stone. At this time the flexible ureteroscope was inserted through the access sheath. Ureteroscopy was performed which showed a large stone that is completely occluding the ureter with significant ureteral edema, there was some mucosal tissue growing over the stone. Using the holmium laser I very gently fragmented the stone ensuring no injury to the ureteral mucosa was done during the fragmentation. After the stone was fragmented at this point I did see the proximal and of the ureter and I was able to advance the scope past the stone and into the kidney, renoscopy was performed showed an additional stone within the renal pelvis which was dusted. Sizable stone fragments were removed using the stone basket. On fluoroscopy there was no additional radiopaque densities, pullback ureteroscopy was performed showed no injury to the ureter or any ureteral stones, of note there was significant edema at the site of the stone impaction in the proximal ureter. As a flexible ureteroscope was advanced was pulled out the sensor wire was advanced through. Next a ureteral stent was passed over the wire, the proximal curl was visualized on fluoroscopy and the distal curl was visualized using the cystoscope. At this time attention was then carried to the left side which was intubated with a sensor wire, I was able to advance the sensor wire through the cystoscope and passed the radiopaque stones in the proximal ureter into the kidney. Next an 1113 [place] access sheath was passed over the wire and into the ureter, the access sheath was advanced just distal to the tip of the stone. The flexible ureteroscope was inserted through the access sheath, using the holmium laser the stone was fragmented, sizable stone fragments were removed using the stone basket. This time the ureteroscope was advanced into the kidney, complete renoscopy was performed which showed small pieces of the stone that migrated into the kidney those were grasped and removed using the that migrated into the kidney those were grasped and removed using the stone basket. Repeat renoscopy showed no no sizable stone fragments or injury to the kidney, of note there was a radiopaque density at the level of the kidney, but retrograde pyelogram was performed which showed calcification is outside the collecting system. Pullback ureteroscopy was performed showed no injury to the ureter or any ureteral stones, as ureteroscope was withdrawn a sensor wire was advanced through next ureteral stent was passed over the wire, the proximal curl was visualized on fluoroscopy and the distal curl was visualized using the cystoscope the bladder was emptied at the end of the case. Patient tolerated procedure was taken to recovery in stable condition. Will plan on leaving the stent for minimum of 2 weeks
[2023-10-11 14:43] VITALS: RESP 16; TEMP 97.2
[2023-10-11 15:42] VITALS: BP 120/63; PULSE 72
--- NOTE | 2023-10-11 20:29 | FL ---
EXAMINATION TYPE: FL urography retrograde Intraoperative/procedural fluoroscopic services were provid ed. Total fluoroscopy time is 108.1 seconds with a total of 18 submitted images to PACS. Please see t he operative/procedural note for further details. DAP: 1.06 mGym2
== END 2023-10-11 15:55 | disposition home or self-care (01) ==
LOC: OR 10:59
PROVIDERS: ATTEND Urology
DX: N20.2 Calculus of kidney with calculus of ureter (principal); J45.909 Unspecified asthma, uncomplicated; F32.A Depression, unspecified; F17.210 Nicotine dependence, cigarettes, uncomplicated; F12.90 Cannabis use, unspecified, uncomplicated; Z91.048 Other nonmedicinal substance allergy status; Z79.51 Long term (current) use of inhaled steroids; Z79.899 Other long term (current) drug therapy
CPT/HCPCS: 52356; 81025; 82365; 74420; 74018; C2625 ×2; C1769; J2250; J0330; J1100 ×2; J2710; J0690; J2405; J2001; J3010; J2704; Q9967; J2371; J1596